=== PATIENT | female | born 1940 | race Caucasian/White ===

== ENCOUNTER 2016-07-11 21:05 | Emergency (ER) | payer MEDICARE, BC ==
[2008-10-02 06:21] VITALS: BP 114/59
[~2016-07-11] VITALS: Ht 162.6 cm; Wt 81.8 kg
[~2016-07-11 21:05] MED LIST: ALLEGRA180 MG PO; BELLADONNA/OPIU1 SU2 RC; BENICAR HCT 12.1 TAB PO; BENICAR/HCTZ; CLARITIN 1010 MG/TAB PO; FISH OIL CONCEN1 SGL PO; GI COCKTAIL; IBUPROFEN 200200 MG PO; LEVOTHYROXIN0.075 MG PO; LIPITOR40 MG PO; PERCOCET 325 MG1 TA2 PO; PERCOCET 5/321 UDTAB PO; PHENOBARBITAL16.2 MG PO; PREVACID 30MG30 MG PO; PRILOSEC40 MG PO; PRINZIDE 12.5 M1 TA1 PO; STOOL SOFTENER100 M2 PO; TRICOR 48MG48 MG PO; VITAMIN B-1000 MCG/T PO; ZOCOR80 MG PO
[2016-07-11 21:08] VITALS: TEMP 97.7
[2016-07-11 21:21] LABS: BASO % 0.4 % (0.0-2.0); EOS # 0.1 (0.0-0.7); EOS % 1.2 % (0-4.0); GRAN # 3.5 (1.4-6.5); GRAN % 51.2 % (42.2-75.2); HEMATOCRIT 41.5 % (37.0-47.0); HEMOGLOBIN 14.1 g/dl (12.5-16.0); LYMPH # 2.7 (1.2-3.4); LYMPH % 39.6 % (20.0-51.0); MEAN CELL VOLUME 92 fl (80.0-100.0); MEAN CORPUSCULAR HEMOGLOBIN 31 pg (27.0-31.0); MEAN CORPUSCULAR HGB CONC 34 g/dl (33.0-37.0); MEAN PLATELET VOLUME 9.7 fl (7.4-10.4); MONO # 0.5 (0.1-0.6); MONO % 7.5 % (1.7-9.3); PLATELET COUNT 210 K/mm3 (130-400); RED BLOOD COUNT 4.51 M/mm3 (4.10-5.30); REDCELL DISTRIBUTION WIDTH-CV 11.9 % (11.5-14.5); WHITE BLOOD COUNT 6.8 K/mm3 (4.8-10.8)
[2016-07-11 21:26] LABS: INR 1.1 (0.8-3.0)
[2016-07-11 21:33] LABS: ADJUSTED CALCIUM 9.5 mg/dL (8.4-10.2); ALBUMIN 4.5 gm/dL (3.5-5.0); ALKALINE PHOSPHATASE 141 U/L (50-136); BILIRUBIN,TOTAL 0.8 mg/dL (0.0-1.0); BLOOD UREA NITROGEN 20 mg/dL (7-17); CALCIUM 9.9 mg/dL (8.4-10.2); CARBON DIOXIDE 28 mmol/L (22-30); CHLORIDE 98 mmol/L (98-107); CREATININE, serum 1.41 mg/dL (0.52-1.25); GLUCOSE 108 mg/dL (74-106); PARTIAL THROMBOPLASTIN TIME 32.7 SECONDS (26.0-37.0)
[2016-07-11 21:39] LABS: ALANINE AMINOTRANSFERASE 64 U/L (9-52); AMYLASE 109 U/L (30-110); ANION GAP 13 mmol/L (7-16); LIPASE 126 U/L (23-300); SODIUM 140 mmol/L (137-145); TOTAL PROTEIN 7.9 gm/dL (6.4-8.2)
[2016-07-11 21:41] LABS: POTASSIUM 2.9 mmol/L (3.4-5.0)
[2016-07-11 21:45] LABS: TROPONIN-I < 0.012 ng/mL (0.000-0.034)
[2016-07-12 00:29] VITALS: BP 133/64; PULSE 80
== END 2016-07-12 01:05 | disposition home or self-care (01) ==
LOC: COL.ER 21:05
PROVIDERS: Emergency Medicine
DX: R10.13 Epigastric pain (principal); R94.31 Abnormal electrocardiogram [ECG] [EKG]; E87.6 Hypokalemia; I10 Essential (primary) hypertension; Z90.49 Acquired absence of other specified parts of digestive tract; Z87.891 Personal history of nicotine dependence; Z90.710 Acquired absence of both cervix and uterus
CPT/HCPCS: C9113; J1170; J2765; J7040

== ENCOUNTER 2016-11-19 12:56 | Observation (INO) | payer MEDICARE, BC ==
[~2016-11-19] VITALS: Ht 162.6 cm; Wt 76.8 kg
[2016-11-19] MEDS ORDERED: PHENOBARBITAL16.2 MG PO (13:41)
[2016-11-19] MEDS ORDERED: TIROSINT100 MC1 PO (13:43)
[2016-11-19] MEDS ORDERED: PRINZIDE 12.5 M1 TA1 PO (13:44)
[2016-11-19 13:45] VITALS: BP 168/68; PULSE 68; TEMP 97.1
[2016-11-19] MEDS ORDERED: ZOCOR 80MG80 MG PO (13:45)
[2016-11-19] MEDS ORDERED: LUTEIN 15 MG-0.1 SGL PO (13:48)
[2016-11-19 19:42] LABS: ADJUSTED CALCIUM 9.5 mg/dL (8.4-10.2); ALBUMIN 3.9 gm/dL (3.5-5.0); CALCIUM 9.4 mg/dL (8.4-10.2); CREATININE, serum 0.95 mg/dL (0.52-1.25); POTASSIUM 3.5 mmol/L (3.4-5.0); TOTAL PROTEIN 6.7 gm/dL (6.4-8.2)
[2016-11-19 21:35] VITALS: BP 151/59; PULSE 102; TEMP 98.4
[2016-11-20 02:04] VITALS: BP 119/49; PULSE 99; TEMP 99.3
[2016-11-20 05:50] VITALS: BP 138/48; PULSE 83; TEMP 99
[2016-11-20 07:43] LABS: MEAN CELL VOLUME 92 fl (80.0-100.0); MEAN CORPUSCULAR HGB CONC 34 g/dl (33.0-37.0); MEAN PLATELET VOLUME 10.5 fl (7.4-10.4); PLATELET COUNT 114 K/mm3 (130-400); RED BLOOD COUNT 3.64 M/mm3 (4.10-5.30); REDCELL DISTRIBUTION WIDTH-CV 11.9 % (11.5-14.5); WHITE BLOOD COUNT 9.4 K/mm3 (4.8-10.8)
[2016-11-20 07:53] LABS: HEMATOCRIT 33.4 % (37.0-47.0); HEMOGLOBIN 11.4 g/dl (12.5-16.0); MEAN CORPUSCULAR HEMOGLOBIN 31 pg (27.0-31.0)
[2016-11-20 07:54] LABS: ADD PATHOLOGY DIFF REVIEW NO
[2016-11-20 07:58] LABS: CALCIUM 8.7 mg/dL (8.4-10.2); CREATININE, serum 1.1 mg/dL (0.52-1.25); POTASSIUM 3.3 mmol/L (3.4-5.0)
[2016-11-20 08:33] LABS: BAND 31 % (0-10); METAMYELOCYTE 1 % (0-0); NEUTROPHILS 61 % (42.0-75.2); PLATELET ESTIMATE DECREASED (NORMAL); TOTAL CELLS COUNTED 100
[2016-11-20 10:00] LABS: ALBUMIN 3.2 gm/dL (3.5-5.0); TOTAL PROTEIN 5.6 gm/dL (6.4-8.2)
[2016-11-20 10:05] VITALS: BP 121/44; PULSE 76; TEMP 98.1
[2016-11-20 10:32] LABS: BILIRUBIN,DIRECT 2.1 mg/dL (0.0-0.4); BILIRUBIN,TOTAL 2.9 mg/dL (0.0-1.0)
[2016-11-20 14:10] VITALS: BP 121/49; PULSE 69; TEMP 98.5
== END 2016-11-20 15:34 | disposition home or self-care (01) ==
LOC: SDCO 12:56 → SURG 15:15 → SDCO 20:00 → SURG 11-20 15:34
PROVIDERS: Family Medicine; Internal Medicine Gastroenterology; Nurse Practitioner Family
DX: K80.50 Calculus of bile duct without cholangitis or cholecystitis without obstruction (principal); K85.90 Acute pancreatitis without necrosis or infection, unspecified; K75.89 Other specified inflammatory liver diseases; K83.8 Other specified diseases of biliary tract; A04.8 Other specified bacterial intestinal infections; K21.9 Gastro-esophageal reflux disease without esophagitis; I10 Essential (primary) hypertension; J44.9 Chronic obstructive pulmonary disease, unspecified; E78.5 Hyperlipidemia, unspecified; E03.9 Hypothyroidism, unspecified; M19.90 Unspecified osteoarthritis, unspecified site; Z96.641 Presence of right artificial hip joint; Z90.710 Acquired absence of both cervix and uterus; Z90.49 Acquired absence of other specified parts of digestive tract; Z87.891 Personal history of nicotine dependence
CPT/HCPCS: OP; 99239; C1726; C1769; C9113; G0378; G0379; J2704; J3010; J7030; Q9967

== ENCOUNTER → 2017-03-25 | Outpatient (CLI) | payer MEDICARE, BC ==
[~2017-03-25] MED LIST changes: +LUTEIN 15 MG-0.1 SGL PO; +TIROSINT100 MC1 PO; +ZOCOR 80MG80 MG PO
== END ==
LOC: MC.RAD 13:31
DX: Z12.31 Encounter for screening mammogram for malignant neoplasm of breast (principal)

== ENCOUNTER → 2018-04-20 | Outpatient (CLI) | payer MEDICARE, BC | LOC: MC.RAD 13:28 | DX: Z12.31 Encounter for screening mammogram for malignant neoplasm of breast (principal) ==

== ENCOUNTER → 2018-07-10 | Outpatient (CLI) | payer MEDICARE, BC | LOC: COL.RAD 08:13 | DX: N28.1 Cyst of kidney, acquired (principal) ==

== ENCOUNTER → 2019-05-28 | Outpatient (CLI) | payer MEDICARE, BC | LOC: MC.RAD 05-25 14:00 | DX: Z12.31 Encounter for screening mammogram for malignant neoplasm of breast (principal) ==

== ENCOUNTER → 2020-06-02 | Outpatient (CLI) | payer MEDICARE, BC | LOC: MC.RAD 13:10 | DX: Z12.31 Encounter for screening mammogram for malignant neoplasm of breast (principal) ==

== ENCOUNTER 2020-09-22 09:38 | Day surgery (SDC) | payer MEDICARE, BC ==
[2008-10-02 06:21] VITALS: BP 114/59
[~2020-09-22] VITALS: Ht 157.5 cm; Wt 82.7 kg
[2020-09-22] MEDS ORDERED: PROBIOTIC FORMU1 CAP PO (10:37)
[2020-09-22] MEDS ORDERED: NAPROSYN 2250 MG/TAB PO (10:37)
--- NOTE | 2020-09-22 10:55 | NUR ---
Patient's blood pressure on admission read 213/83. This is rechecked in the patient's other arm and results as 190/77. This is reported to RELL Fry. He orders 10 mg IV labetolol once.
--- NOTE | 2020-09-22 11:22 | NUR ---
Patient received 10 mg IV labetolol at 1101. Vital signs are re-checked at 1122 and are as follows: BP 152/59, HR 69, SpO2 96%.
--- NOTE | 2020-09-22 11:39 | NUR ---
Patient places her call light on and asks for assistance ambulating to the restroom. She ambulates to the restroom with standby assist, voids, and returns to room. She denies further needs at this time.
[2020-09-22 13:35] VITALS: BP 134/58; PULSE 68; TEMP 96.2
--- NOTE | 2020-09-22 13:35 | NUR ---
Patient arrives [place] [facility] [place], accompanied by IRRIGATION DISTRICT MANAGER and CONTINUOUS DRIER OPERATOR. She is drowsy, but wakes to voice and converses with staff. She denies any pain or nausea. She has numbness to her middle and fourth fingers on her right hand. There is a clean/dry/intact bandage covering the operative site. Her hand is pink, warm; she moves her fingers with ease. PIV to TKO. Lights dimmed for comfort. Monitoring applied -VSS and WNL on room air.
[2020-09-22 13:45] VITALS: BP 118/60; PULSE 65
--- NOTE | 2020-09-22 13:45 | NUR ---
Patient is alert, awake. She denies pain, nausea, or need. Neurovascular assessent remains unchanged. Dressing clean/dry/intact. Patient is sitting up in bed. She is offered and receives a pepsi and a muffin.
[2020-09-22 14:00] VITALS: BP 107/57; PULSE 64
--- NOTE | 2020-09-22 14:00 | NUR ---
VSS on room air. Patient has ate her muffin and drank 1 pepsi. She denies pain, nausea, or need.
[2020-09-22 14:15] VITALS: BP 134/50; PULSE 64
[2020-09-22 14:30] VITALS: BP 129/43; PULSE 65
--- NOTE | 2020-09-22 15:00 | NUR ---
Patient has met discharge criteria. Discharge instructions are discussed. She denies any questions and verbalizes understanding. PIV is removed with catheter intact and hemostasis achieved. She changes to her clothing independently. She is escorted to the exit via wheelchair by staff and discharged to the care of her , who drives her home in a private vehicle at 1500.
[2020-09-22 15:05] VITALS: BP 190/77; PULSE 84; TEMP 97.3
== END 2020-09-22 15:00 | disposition home or self-care (01) ==
LOC: SDCO 09:38
DX: M12.841 Other specific arthropathies, not elsewhere classified, right hand (principal); I10 Essential (primary) hypertension; J44.9 Chronic obstructive pulmonary disease, unspecified; E78.5 Hyperlipidemia, unspecified; E03.9 Hypothyroidism, unspecified; M51.36 Other intervertebral disc degeneration, lumbar region; M54.32 Sciatica, left side; E78.00 Pure hypercholesterolemia, unspecified; Z20.822 Contact with and (suspected) exposure to COVID-19; Z79.899 Other long term (current) drug therapy; Z88.2 Allergy status to sulfonamides; Z88.5 Allergy status to narcotic agent; Z79.890 Hormone replacement therapy
CPT/HCPCS: J0690; J2704; J3010; J7120

== ENCOUNTER → 2022-01-05 | Outpatient (CLI) | payer MEDICARE, BC ==
[~2022-01-05] MED LIST changes: +NAPROSYN 2250 MG/TAB PO; +PROBIOTIC FORMU1 CAP PO
== END ==
LOC: COL.RAD 06:31
DX: K21.9 Gastro-esophageal reflux disease without esophagitis (principal); R09.89 Other specified symptoms and signs involving the circulatory and respiratory systems
CPT/HCPCS: A9541

== ENCOUNTER → 2022-09-16 | Outpatient (CLI) | payer MEDICARE, BC | LOC: MC.RAD 08-04 14:00 | DX: Z12.31 Encounter for screening mammogram for malignant neoplasm of breast (principal) ==

== ENCOUNTER 2022-11-07 11:10 | Inpatient (IN) | payer MEDICARE, BC ==
[2022-11-07] VITALS (8 sets, daily range): BP systolic 129–171; BP diastolic 50–114; PULSE 57–72; TEMP 97.4–98.6
[~2022-11-07] VITALS: Ht 160 cm; Wt 68.3 kg
[~2022-11-07 11:10] MED LIST changes: +PRIL40 PO; -PRILOSEC40 MG PO
[2022-11-07 11:42] LABS: BASO % 0.2 % (0.0-2.0); EOS # 0.1 K/mm3 (0.0-0.7); EOS % 1.1 % (0.0-4.0); GRAN # 6.7 K/mm3 (1.4-6.5); HEMATOCRIT 40.5 % (37.0-47.0); HEMOGLOBIN 14.8 g/dl (12.5-16.0); LYMPH # 0.8 K/mm3 (1.2-3.4); LYMPH % 10.3 % (20.0-51.0); MEAN CELL VOLUME 88 fl (80.0-100.0); MEAN CORPUSCULAR HEMOGLOBIN 32 pg (27-31); MEAN CORPUSCULAR HGB CONC 37 g/dl (33.0-37.0); MONO # 0.5 K/mm3 (0.1-0.6); PLATELET COUNT 150 K/mm3 (130-400); RED BLOOD COUNT 4.59 M/mm3 (4.10-5.30); REDCELL DISTRIBUTION WIDTH-CV 11.5 % (11.5-14.5)
[2022-11-07 11:52] LABS: ALBUMIN 3.7 gm/dL (3.4-4.8); BILIRUBIN,TOTAL 2.1 mg/dL (0.2-1.2); C-REACTIVE PROTEIN 7.58 mg/dL (0.00-0.50); CALCIUM 10.9 mg/dL (8.4-10.2); CREATININE, serum 1.1 mg/dL (0.57-1.11); TOTAL PROTEIN 7.6 gm/dL (6.2-8.1)
[2022-11-07 12:16] LABS: POTASSIUM 2.4 mmol/L (3.5-4.5)
[2022-11-07 12:54] LABS: COLLECTION METHOD CLEAN CATCH
[2022-11-07 13:09] LABS: MUCOUS Present (NOT PRESENT); URINE BACTERIA Rare /hpf (NONE SEEN)
[2022-11-07 13:10] LABS: URINE APPEARANCE Hazy (CLEAR/HAZY); URINE COLOR Yellow (YELLOW)
[2022-11-07 13:11] LABS: URINE BLOOD TRACE-LYSED (NEGATIVE); URINE GLUCOSE Negative (NEGATIVE); URINE KETONE 1+ (NEGATIVE); URINE NITRATE Negative (NEGATIVE); URINE PROTEIN(semi-quant) Negative (NEGATIVE)
[2022-11-07] MEDS ORDERED: ZOCOR 80MG80 MG PO (13:51)
[2022-11-07] MEDS ORDERED: SYNTHROID0.088 MG/T PO (13:51)
[2022-11-07] MEDS ORDERED: COZAAR100 MG PO (13:52)
[2022-11-07] MEDS ORDERED: PRIL40 PO (13:52)
[2022-11-07] MEDS ORDERED: REGLAN 10MG10 MG/TAB PO (13:53)
[2022-11-07] MEDS ORDERED: DITROPAN XL10 MG PO (13:53)
[2022-11-07] MEDS ORDERED: HYGROTON50 MG PO (13:55)
--- NOTE | 2022-11-07 14:15 | NUR ---
PATIENT ADMITED INTO ROOM 328 FROM ER. A&O. AT BEDSIDE. VSS ON TELE. CURRENTLY DENIES ABD PAIN OR N/V. IV FLUIDS INFUSING INTO LEFT FORARM IV. ER REPORTED PATIENT WILL LIKELY REQUIRE AN ERCP, GI NOTIFIED. PATIENT APPEARS A LITTLE JAUNDICE. HX OF PREVIOUS LANIE WITH ERCP AND PANCREATITIS. HEAD TO TOE ASSESSMENT COMPLETE. SEE MED ORDERS. ORIENTED TO ROOM. CALL LIGHT IN REACH.
[2022-11-07] MEDS ORDERED: DONNATAL TABLET1 TAB PO (19:36)
--- NOTE | 2022-11-07 20:00 | NUR ---
PT IN BED, IS ALERT AND ORIENTED X4. ASKING ABOUT HOME MEDS, WILL HAVE VENESSA PERALTA REVIEW. HAS POTASSIUM REPLACEMENT INFUSING WITH IVF TO LFA, SITE WITHOUT REDNESS OR SWELLING. DENIES N/V AT THIS TIME, NO LOOSE STOOLS. SKIN MILDLY JAUNDICE. REPORTS BACK AND LEG DISCOMFORT. SCDS ON.
[2022-11-07] MEDS ORDERED: NATURAL POTASS595 MG PO (22:08)
--- NOTE | 2022-11-07 22:35 | NUR ---
HS MEDS GIVEN INCLUDING PERCOCET FOR PAIN. LAST BAG OF POTASSIUM INFUSING.
[2022-11-08] VITALS (11 sets, daily range): BP systolic 139–174; BP diastolic 54–59; PULSE 58–66; TEMP 97.4–98.2
--- NOTE | 2022-11-08 03:00 | NUR ---
PTS POTASSIUM REMAINS LOW 2.5, INITIATED REPLACEMENT.
[2022-11-08 03:22] LABS: ALBUMIN 2.9 gm/dL (3.4-4.8); CALCIUM 9.1 mg/dL (8.4-10.2); CREATININE, serum 0.96 mg/dL (0.57-1.11); MAGNESIUM 1.3 mg/dL (1.6-2.6); PHOSPHOROUS 1.8 mg/dL (2.3-4.7)
[2022-11-08 03:25] LABS: POTASSIUM 2.5 mmol/L (3.5-4.5)
--- NOTE | 2022-11-08 04:58 | NUR ---
MAGNESIUM REPLACEMENT INITIATED, HYDRALAZINE 10MG IVP FOR AAL=498.
[2022-11-08 06:29] LABS: BASO % 0.2 % (0.0-2.0); EOS # 0.1 K/mm3 (0.0-0.7); EOS % 2.2 % (0.0-4.0); GRAN # 3.7 K/mm3 (1.4-6.5); GRAN % 73.6 % (42.2-75.2); LYMPH # 0.8 K/mm3 (1.2-3.4); LYMPH % 16.5 % (20.0-51.0); MEAN CELL VOLUME 89 fl (80.0-100.0); MEAN CORPUSCULAR HGB CONC 35 g/dl (33.0-37.0); MEAN PLATELET VOLUME 10.1 fl (7.4-10.4); MONO # 0.4 K/mm3 (0.1-0.6); MONO % 7.3 % (1.7-9.3); PLATELET COUNT 112 K/mm3 (130-400); RED BLOOD COUNT 3.57 M/mm3 (4.10-5.30); REDCELL DISTRIBUTION WIDTH-CV 11.3 % (11.5-14.5)
--- NOTE | 2022-11-08 06:31 | NUR ---
B/P 146/50, POTASSIUM REPLACEMENT IN PROGRESS.
[2022-11-08 06:40] LABS: BILIRUBIN,DIRECT 0.8 mg/dL (0.0-0.5); BILIRUBIN,TOTAL 1.3 mg/dL (0.2-1.2); TOTAL PROTEIN 5.7 gm/dL (6.2-8.1)
[2022-11-08 06:47] LABS: PROTHROMBIN TIME 11.9 SECONDS (9.7-12.8)
--- NOTE | 2022-11-08 06:51 | NUR ---
Shift report received from film processing shift supervisor RN. Pt awake and resting supine in bed. Supervision provided as pt stood at sink for oral hygiene. She denies pain/discomfort. Denies other needs. Call light is in her reach.
[2022-11-08 07:14] LABS: HEMATOCRIT 31.9 % (37.0-47.0); HEMOGLOBIN 11.3 g/dl (12.5-16.0); MEAN CORPUSCULAR HEMOGLOBIN 32 pg (27-31)
--- NOTE | 2022-11-08 08:58 | NUR ---
SW met with the patient to discuss discharge plan. The patient lives in [place] with her , Clark (ph#[phone]). She reports independence with ADLs and has a cane available, if needed. The patient's PCP is Dr. Lorena Terrazas and she obtains her medications from [facility]. The patient's DPOA-HC is in EMR and it designates her . The alternate is her daughter, Brenda. The patient plans to return home with her upon discharge. No additional needs at this time. *Discharge plan: home with *
--- NOTE | 2022-11-08 09:42 | NUR ---
Pt assisted to the bathroom. Pt reporting lower back pain and is requesting Percocet. Percocet given per PRN order. She denies other needs. Call light is in her reach.
--- NOTE | 2022-11-08 10:26 | NUR ---
Pt sitting up in bed visiting with her who is at the bedside. Percocet given per PRN order approx 1hr ago - pt reports improvement. She denies other needs. Call light is in her reach.
--- NOTE | 2022-11-08 13:07 | NUR ---
Initial visit: Advertising Intern stopped by room on rounds. Pt was resting and content. Pt has no needs right now. Advertising Intern will follow up as needed.
--- NOTE | 2022-11-08 18:28 | NUR ---
Pt sitting up in bed watching television. is at the bedside. Pt has tolerated CL diet today w/out abd. pain or nausea. Pt reports that her back pain is returning but would like to take pain medication "later on". Pt has her call light in her reach. Denies other needs.
--- NOTE | 2022-11-08 19:45 | NUR ---
Assessment complete. A&Ox3. Denies pain/nausea/shortness of breath. BP slightly elveated-PM dose of losartan given. NS@75ml/hr to left wrist IV infusing without difficulty. Tele report SR. K redraw 3.1 with re-order per protocol. Plan of care discussed for this shift to include meds/pain control/calling for questions/concerns. Verbalizes understanding. Call light in reach. Will monitor.
[2022-11-09] VITALS (20 sets, daily range): BP systolic 147–203; BP diastolic 63–81; PULSE 62–76; TEMP 97.4–98.1
--- NOTE | 2022-11-09 00:19 | NUR ---
Noted to have a blood pressure of 180s/80s. Taken manually by this nurse-150/68.
--- NOTE | 2022-11-09 04:52 | NUR ---
Noted to have edema to left hand IV site. DCd at this time cath intact. New IV placed to right [id number] attempt.
[2022-11-09 07:37] LABS: BASO % 0.6 % (0.0-2.0); EOS # 0.2 K/mm3 (0.0-0.7); GRAN # 3.5 K/mm3 (1.4-6.5); HEMOGLOBIN 11.7 g/dl (12.5-16.0); LYMPH # 1.1 K/mm3 (1.2-3.4); MEAN CELL VOLUME 90 fl (80.0-100.0); MEAN CORPUSCULAR HEMOGLOBIN 32 pg (27-31); MEAN CORPUSCULAR HGB CONC 36 g/dl (33.0-37.0); MEAN PLATELET VOLUME 10.6 fl (7.4-10.4); MONO # 0.3 K/mm3 (0.1-0.6); MONO % 5.8 % (1.7-9.3); PLATELET COUNT 132 K/mm3 (130-400); RED BLOOD COUNT 3.67 M/mm3 (4.10-5.30); REDCELL DISTRIBUTION WIDTH-CV 11.8 % (11.5-14.5)
[2022-11-09 07:42] LABS: ALBUMIN 3.1 gm/dL (3.4-4.8); CREATININE, serum 0.91 mg/dL (0.57-1.11); MAGNESIUM 1.9 mg/dL (1.6-2.6); PHOSPHOROUS 0.9 mg/dL (2.3-4.7); POTASSIUM 3.3 mmol/L (3.5-4.5)
--- NOTE | 2022-11-09 09:41 | NUR ---
PT SITTING UP IN BED READING, AM MEDS GIVEN ORDERED. POTASSIUM PROTOCOLS REPLACING. PT DENIES NEEDS OR PAIN AT THIS TIME.
--- NOTE | 2022-11-09 13:40 | NUR ---
bedside shift report eceived from VONDA Garcia, endoscopy here and pateint to procedure per cart
--- NOTE | 2022-11-09 13:41 | NUR ---
DISCHARGE INSTRUCTIONS REVIEWED WITH PT AND . QUESTIONS ANSWERED AND PT LEFT WITH STAFF PER WHEEL CHAIR.
--- NOTE | 2022-11-09 15:00 | NUR ---
states is starting to have some pain, she thinks it is just tenderness from the procedure, and also c/o nausea, after starting IV meds she states the pain is about the same but the nausea has subsided, will monitor,
--- NOTE | 2022-11-09 15:50 | NUR ---
BP remains elevated, Dr Frost notified, medicated with apresoline 10mg slow IV, assisted up to bathroom and voids QS, states pain is not any worse and no grimacing or moaning noted, informed her Dr Frost wants her to spend the night and she is pleased with this, no further nausea, provided water and instructed to take slowly
--- NOTE | 2022-11-09 17:03 | NUR ---
assisted up to bathroom and voids qs, states pain is about the same and that is more discomfort, has taken sips of water and tolerated well
--- NOTE | 2022-11-09 18:51 | NUR ---
bedside shift report given to VONDA Agrawal
[2022-11-10 00:30] VITALS: BP_SYST 203
--- NOTE | 2022-11-10 02:20 | NUR ---
C/O EPIGASTRIC AREA PAIN THAT RADIATES TO HER BACK UNTIL 0130. MULTIPLE DOSES OF PRN ROXICODONE AND ULTRAM GIVEN. PRN ZOFRAN GIVEN FOR NAUSEA/VOMITING - EFFECTIVE. 0200 PT SLEEPING SOUNDLY.
[2022-11-10 03:37] VITALS: BP 150/65; PULSE 83; TEMP 98.2
[2022-11-10 04:30] VITALS: BP_SYST 150
[2022-11-10 08:00] VITALS: BP 112/48; PULSE 57; TEMP 97.7
[2022-11-10] MEDS ORDERED: ULTRAM 50MG TAB50 MG PO (08:27)
[2022-11-10] MEDS ORDERED: ZOFRAN ODT4 MG PO (08:28)
[2022-11-10 08:30] VITALS: BP_SYST 112
[2022-11-10] MEDS ORDERED: K-DUR20 MEQ PO (08:30)
--- NOTE | 2022-11-10 08:58 | NUR ---
The patient is to discharge back home with her today, 11/10. SW met with the patient and presented and read the IM form outloud to her. The patient verbalized understanding and agreement to discharge today. She signed the form and declined a copy. She had no questions for concerns for SW. No additional needs at this time.
--- NOTE | 2022-11-10 08:59 | NUR ---
PT RESTING IN BED. DISCHARGE INSTRUCTIONS REVIEWED WITH PT. PLAN ON DISCHARGE LATER TODAY
--- NOTE | 2022-11-10 11:39 | NUR ---
pt left unit per wheel chair with staff.
== END 2022-11-10 11:00 | disposition home or self-care (01) | DRG 445 ==
LOC: COL.ER 11:10 → SURG 13:07
PROVIDERS: Family Medicine; Internal Medicine Gastroenterology; ADMIT Internal Medicine
PROC: 0FC98ZZ Extirpation of Matter from Common Bile Duct, Via Natural or Artificial Opening Endoscopic (ICD-10-PCS; principal; 2022-11-09 13:00)
DX: K80.50 Calculus of bile duct without cholangitis or cholecystitis without obstruction (principal); E87.1 Hypo-osmolality and hyponatremia; K21.9 Gastro-esophageal reflux disease without esophagitis; K31.84 Gastroparesis; I10 Essential (primary) hypertension; E03.9 Hypothyroidism, unspecified; M79.7 Fibromyalgia; Z96.643 Presence of artificial hip joint, bilateral; E87.6 Hypokalemia; K58.9 Irritable bowel syndrome, unspecified; E83.42 Hypomagnesemia; M19.90 Unspecified osteoarthritis, unspecified site; Z88.6 Allergy status to analgesic agent; Z88.1 Allergy status to other antibiotic agents; Z88.5 Allergy status to narcotic agent; Z88.2 Allergy status to sulfonamides; Z88.8 Allergy status to other drugs, medicaments and biological substances; Z90.49 Acquired absence of other specified parts of digestive tract; Z90.89 Acquired absence of other organs; Z90.710 Acquired absence of both cervix and uterus; Z79.890 Hormone replacement therapy; Z79.899 Other long term (current) drug therapy; Z23 Encounter for immunization
CPT/HCPCS: C1769; J0360; J2405; J2543; J2704; J3475; J3480; J7030; J7120; Q9967

== ENCOUNTER → 2023-09-19 | Outpatient (CLI) | payer MEDICARE ==
[~2023-09-19] MED LIST changes: +COZAAR100 MG PO; +DITROPAN XL10 MG PO; +DONNATAL TABLET1 TAB PO; +HYGROTON50 MG PO; +K-DUR20 MEQ PO; +NATURAL POTASS595 MG PO; +REGLAN 10MG10 MG/TAB PO; +SYNTHROID0.088 MG/T PO; +ULTRAM 50MG TAB50 MG PO; +ZOFRAN ODT4 MG PO
== END ==
LOC: MC.RAD 13:38
DX: Z12.31 Encounter for screening mammogram for malignant neoplasm of breast (principal)